=== PATIENT | male | born 1950 | race Two or more races ===

== ENCOUNTER 2019-01-22 22:24 | Emergency (ER) | payer OTHER ==
[~2019-01-22] VITALS: Ht 170.2 cm; Wt 88.5 kg
--- NOTE | 2019-01-22 22:52 | NUR ---
ED Nurse Note: pt walked in c/o left eye problem, pt reports he was cleaning dish at work and accidentally broke the plate and possibly got some part in his eye, pt denies pain nor itching nor vision problem at this time. noted redness in the sclera. will cont monitor.
[2019-01-22 22:54] VITALS: BP 148/81
--- NOTE | 2019-01-22 23:05 | NUR ---
ED Nurse Note: report given to RN Thais and endorsed care, pt pending to be seen by ERMD.
[2019-01-22] MEDS ORDERED: Fluorescein Strips LEFT EYE ONE (23:15)
[2019-01-22] MEDS ORDERED: Tetracaine 0.5% Opth 4ml Soln RIGHT EYE ONE (23:15)
[2019-01-23] MEDS ORDERED: OCUFLOX5 ML LEFT EYE (00:03)
--- NOTE | 2019-01-23 00:08 | NUR ---
ED Nurse Note: Pt cleared by health care Provider for discharge. DC instructions/prescription was given and explained to pt and verbalized understanding of teachings. All medical deviecs such as ID band removed. Pt is AAO x4, ambulatory and left with all personal belongings.
--- NOTE | 2019-01-23 06:22 | Emergency Room Report ---
History of Present Illness General Chief Complaint: Eye Problems Source: Patient Present Illness HPI 68-year-old male presents ED for evaluation. States that a piece of broken dish hit him in the eye at work today. Pain is burning, 5 out of 10, nonradiating. Denies photophobia or blurry vision. Denies any other injuries. No other aggravating relieving factors. Denies any other associated symptoms Allergies: Coded Allergies: No Known Allergies (Unverified , 01/22/19) Patient History Past Medical History: none Past Surgical History: none Pertinent Family History: none Social History: Denies: smoking, alcohol use, drug use Immunizations: UTD Reviewed Nursing Documentation: PMH: Agreed; PSxH: Agreed Nursing Documentation-PMH Past Medical History: No Stated History Review of Systems All Other Systems: negative except mentioned in HPI Physical Exam Vital Signs Date Time Temp Pulse Resp B/P (MAP) Pulse Ox O2 Delivery O2 Flow Rate FiO2 01/22/19 22:38 97.9 79 18 148/81 (103) 99 Room Air Sp02 EP Interpretation: reviewed, normal General Appearance: no apparent distress, alert, GCS 15, non-toxic Head: normocephalic Eyes: right eye normal inspection; left eye fluoroscene uptake - corneal abrasion; bilateral eye PERRL, bilateral eye EOMI ENT: hearing grossly normal, normal pharynx, no angioedema, normal voice Neck: normal inspection Respiratory: normal inspection Cardiovascular #1: normal inspection Gastrointestinal: normal inspection Rectal: deferred Genitourinary: no CVA tenderness Musculoskeletal: normal inspection Psychiatric: normal inspection Skin: normal inspection Lymphatic: normal inspection Medical Decision Making Diagnostic Impression: Primary Impression: Corneal abrasion Qualified Codes: S05.02XA - Injury of conjunctiva and corneal abrasion without foreign body, left eye, initial encounter ER Course Hospital Course 68-year-old male presents to ED with left eye pain, feel something in his eye Differential diagnoses include: conjunctivitis, traumatic iritis, foreign body, corneal abrasion Clinical course Patient placed on stretcher. After initial history, I applied tetracaine and Fluorescin to the affected eye. Using Wood's lamp I examined the eyes, possible corneal abrasion noted. I inverted eyelid and saw no evidence of foreign body. discussed findings with patient. Will discharge with antibiotics. Will provide optho the referrals. Safe for discharge with close outpatient follow-up Diagnosis - corneal abrasion Stable and discharged to home with prescription for Ocuflox. Followup with PMD/ Optho. Return to ED if symptoms recur or worsen Last Vital Signs Date Time Temp Pulse Resp B/P (MAP) Pulse Ox O2 Delivery O2 Flow Rate FiO2 01/23/19 00:08 97.9 79 18 148/81 99 Room Air Status: improved Disposition: HOME, SELF-CARE Condition: Stable Scripts Ofloxacin (OCUFLOX) 5 Ml Drops 1 DROP LEFT EYE QID for 7 Days, ML Prov: Cristi Schwartz MD 01/23/19 Referrals: Arturo Guardado MD, Maziar M.D. MD NOT CHOSEN IPA/,REFERRING (PCP) Patient Instructions: Corneal Abrasion, [id number] Cristi Schwartz MD Jan 23, 2019 06:22
== END 2019-01-23 00:07 | disposition home or self-care (01) ==
LOC: EMR 23:30
DX: S05.02XA Injury of conjunctiva and corneal abrasion without foreign body, left eye, initial encounter (principal); W22.8XXA Striking against or struck by other objects, initial encounter; Y92.9 Unspecified place or not applicable; Y99.0 Civilian activity done for income or pay
CPT/HCPCS: 99282